=== PATIENT | female | born 1955 | race Caucasian/White ===

== ENCOUNTER → 2016-10-22 | Outpatient (RCR) | payer OTHER | END | disposition home or self-care (01) | LOC: WSC → WSPT 07-24 09:40 → WSC 07-24 09:40 → WSPT 07-24 09:45 → WSC 07-31 13:30 → WSPT 08-05 07:00 → WSC 08-10 08:30 → WSPT 08-13 07:00 → WSC 09-24 07:00 → WSPT 09-24 07:00 → WSC 10-13 08:00 → WSPT 10-13 08:00 → WSC 10-15 07:00 → WSPT 10-15 07:00 | DX: M54.5 Low back pain (principal); M79.1 Myalgia | CPT/HCPCS: G0283-GP ==

== ENCOUNTER → 2018-06-28 | Outpatient (CLI) | payer OTHER | LOC: MC.RAD 07:16 | DX: Z12.31 Encounter for screening mammogram for malignant neoplasm of breast (principal) ==

== ENCOUNTER → 2019-07-26 | Outpatient (CLI) | payer OTHER | LOC: MC.RAD 07:30 | DX: Z12.31 Encounter for screening mammogram for malignant neoplasm of breast (principal) ==

== ENCOUNTER → 2021-04-22 | Outpatient (CLI) | payer OTHER | LOC: MC.RAD 11:41 | DX: Z12.31 Encounter for screening mammogram for malignant neoplasm of breast (principal) ==

== ENCOUNTER 2021-08-25 09:59 | Outpatient (RCR) | payer OTHER | END 2021-08-28 | disposition home or self-care (01) | LOC: WSPT | DX: M70.61 Trochanteric bursitis, right hip (principal) ==

== ENCOUNTER 2021-09-23 12:45 | Outpatient (RCR) | payer OTHER | END 2021-09-27 | disposition home or self-care (01) | LOC: WSPT | DX: M70.61 Trochanteric bursitis, right hip (principal) ==

== ENCOUNTER 2021-10-13 12:45 | Outpatient (RCR) | payer OTHER | END 2021-10-28 | disposition home or self-care (01) | LOC: WSPT | DX: M70.61 Trochanteric bursitis, right hip (principal) ==

== ENCOUNTER 2021-12-10 07:58 | Outpatient (RCR) | payer OTHER | END 2021-12-28 | disposition home or self-care (01) | LOC: PT.GENESIS | DX: M16.11 Unilateral primary osteoarthritis, right hip (principal) ==

== ENCOUNTER → 2022-01-28 | Outpatient (RCR) | payer OTHER | END | disposition home or self-care (01) | LOC: PT.GENESIS → WSPT 01-08 11:15 → PT.GENESIS 01-12 16:45 | DX: Z96.641 Presence of right artificial hip joint (principal) ==

== ENCOUNTER → 2023-04-02 | Outpatient (CLI) | payer OTHER | LOC: COL.RAD 07:26 | DX: M16.12 Unilateral primary osteoarthritis, left hip (principal) | CPT/HCPCS: J0665; J3301; Q9967 ==

== ENCOUNTER 2023-09-27 10:42 | Emergency (ER) | payer OTHER ==
[~2023-09-27] VITALS: Ht 162.6 cm; Wt 79.5 kg
[2023-09-27 10:59] VITALS: TEMP 99
[2023-09-27] MEDS ORDERED: LR 1,000 ML IV ONE (11:45)
[2023-09-27 12:13] LABS: BASO % 0.5 % (0.0-2.0); EOS % 0.7 % (0.0-4.0); GRAN # 4.5 K/mm3 (1.4-6.5); GRAN % 77.5 % (42.2-75.2); HEMATOCRIT 43.9 % (37.0-47.0); HEMOGLOBIN 14.6 g/dl (12.5-16.0); LYMPH # 0.8 K/mm3 (1.2-3.4); LYMPH % 13.3 % (20.0-51.0); MEAN CELL VOLUME 98 fl (80.0-100.0); MEAN CORPUSCULAR HEMOGLOBIN 33 pg (27-31); MEAN CORPUSCULAR HGB CONC 33 g/dl (33.0-37.0); MEAN PLATELET VOLUME 11.6 fl (7.4-10.4); MONO # 0.5 K/mm3 (0.1-0.6); MONO % 7.7 % (1.7-9.3); PLATELET COUNT 181 K/mm3 (130-400); RED BLOOD COUNT 4.48 M/mm3 (4.10-5.30)
[2023-09-27 12:33] LABS: ALBUMIN 2.9 g/dL (3.4-4.8); BILIRUBIN,TOTAL 0.9 mg/dL (0.2-1.2); CALCIUM 9.5 mg/dL (8.4-10.2); CREATININE, serum 0.8 mg/dL (0.57-1.11); POTASSIUM 3.8 mEq/L (3.5-4.5); TOTAL PROTEIN 6.5 g/dl (6.2-8.1)
[2023-09-27 12:57] LABS: PH 7.5 (5.0-8.5); URINE APPEARANCE CLEAR (CLEAR/HAZY); URINE BLOOD NEGATIVE (NEGATIVE); URINE COLOR Dark Yellow (YELLOW); URINE GLUCOSE NEGATIVE (NEGATIVE); URINE KETONE NEGATIVE (NEGATIVE); URINE NITRATE NEGATIVE (NEGATIVE); URINE PROTEIN(semi-quant) NEGATIVE (NEGATIVE)
[2023-09-27 13:09] LABS: COLLECTION METHOD CLEAN CATCH
[2023-09-27 13:45] VITALS: BP 107/74; PULSE 64
== END 2023-09-27 13:53 | disposition home or self-care (01) ==
LOC: COL.ER 10:42
PROVIDERS: Emergency Medicine
DX: R11.2 Nausea with vomiting, unspecified (principal); R74.01 Elevation of levels of liver transaminase levels
CPT/HCPCS: J2765; J7120

== ENCOUNTER 2023-11-19 08:15 | Outpatient (RCR) | payer OTHER | END 2023-11-28 | disposition home or self-care (01) | LOC: PT.GENESIS | DX: Z96.642 Presence of left artificial hip joint (principal) ==

== ENCOUNTER → 2023-12-06 | Outpatient (CLI) | payer OTHER | LOC: MC.RAD 13:55 | DX: Z12.31 Encounter for screening mammogram for malignant neoplasm of breast (principal); N64.89 Other specified disorders of breast ==

== ENCOUNTER 2023-12-17 11:00 | Outpatient (RCR) | payer OTHER | END 2023-12-29 | disposition home or self-care (01) | LOC: PT.GENESIS | DX: Z96.642 Presence of left artificial hip joint (principal) ==

== ENCOUNTER → 2023-12-30 | Outpatient (CLI) | payer OTHER ==
[~2023-12-30] MED LIST: Iohexol 300 - 100 ML VIAL IV ONE; NS 100 ML IV SCH
== END ==
LOC: COL.RAD 13:34
DX: I26.99 Other pulmonary embolism without acute cor pulmonale (principal)
CPT/HCPCS: Q9967